=== PATIENT | male | born 1975 | race Caucasian/White ===

== ENCOUNTER 2022-12-01 20:00 | Observation (INO) ==
--- NOTE | 2022-12-01 20:09 | Emergency Department Note ---
History of Present Illness General Chief complaint: Illness Stated complaint: DIARREAH,ABDOMINAL PAIN,HEADACHE,NAUSEA DIZZY Time Seen by Provider: 12/01/22 20:07 History of Present Illness Maximum Pain Intensity: 4 This 47-year-old male patient presents to the emergency department with his supportive ex- for evaluation of diarrhea, abdominal pain, nausea, and dizziness. He has had diarrhea for the past 3 days. He went to [facility] and they told him they thought he had the flu, but did not do any testing other than a urinalysis which was normal per patient. However, about 2 hours ago his stools started coming out "black like motor oil." He is also having generalized and upper abdominal pain along with nausea. No vomiting. No fevers, but feels warm. Denies chest pain or SOB. Denies any urinary symptoms. He is not on any blood thinners. He has been taking ibuprofen 800 mg every 8 hrs over the past 3 days since getting sick. No ibuprofen since 6:30 am today. Does not usually take a lot of NSAIDs. Has not been taking any Pepto-Bismol. He rates his discomfort as 4/10. He has had a lot of abdominal issues since he was in [place] in 2002 including GERD, IBS-D, etc. He follows a FODMAP diet and takes omeprazole 40 mg QD. He had an EGD and Colonoscopy by [facility] and was found an adenomatous polyp in his colon that was removed and reflux changes per patient. No family history of colon cancer or colon polyps. Denies recent antibiotic use, recent travel, drinking from outside water sources/well water, and denies known ill contacts. Home Medications Medication Instructions Recorded Confirmed Type ibuprofen 200 mg tablet 800 mg PO BID PRN Pain 12/01/22 12/01/22 History lorazepam 1 mg tablet (Ativan) 0.5 mg PO DAILY PRN .Anx from 12/01/22 12/01/22 History flying losartan 25 mg tablet 25 mg PO QPM 12/01/22 12/01/22 History omeprazole 40 mg capsule,delayed 40 mg PO DAILY 12/01/22 12/01/22 History release Allergies Allergy/AdvReac Type Severity Reaction Status Date / Time No Known Drug Allergies Allergy nkda Verified 12/01/22 21:31 Past Med/Surg History Medical History Anxiety Hypertension Nephrolithiasis Tobacco abuse Surgical History S/P cholecystectomy Family History Other No significant family history Social History Smoking Status: Never smoker Hx Alcohol Use: Yes Alcohol type: beer Hx Substance Use: No Preferred Language: Hungarian Communication Ability: Effective Sped Teacher Required: No Beliefs That Will Affect Care: None marital status: Current Living Situation: Family current occupational status: employed Other Information That Helps Us Care for You: No Feels Safe at Home: Yes Safety Concerns: Feels Safe At This Time Assistive Devices: None Review of Systems See HPI for pertinent positives & negatives. Physical Exam Vital Signs Vital Signs - 24 hr 12/01/22 20:02 12/01/22 20:43 12/01/22 21:02 Temperature 37.3 C Temperature Source Temporal Artery Scan Pulse Rate 108 H 85 Pulse Rate [Apical] Pulse Rhythm Regular Pulse Strength Normal Respiratory Rate 18 Respiratory Effort / Characteristics Non-Labored Spontaneous Respiratory Depth Normal Respiratory Pattern Regular Blood Pressure 167/99 H Blood Pressure [Left Arm] Blood Pressure Mean 121 Blood Pressure Mean [Left Arm] Blood Pressure Position Sitting Blood Pressure Position [Left Arm] Pulse Oximetry 98 99 Oxygen Delivery Method Room Air Room Air Sepsis Recent Fever Within 48 Hours No Sepsis New/Unexplained Change in Mental Status N/A Sepsis Action Taken by Nursing No Action Required 12/01/22 21:56 12/01/22 23:24 Temperature 37.1 C Temperature Source Oral Pulse Rate Pulse Rate [Apical] 86 82 Pulse Rhythm Pulse Strength Respiratory Rate 16 18 Respiratory Effort / Characteristics Non-Labored Spontaneous Non-Labored Spontaneous Respiratory Depth Normal Normal Respiratory Pattern Regular Regular Blood Pressure Blood Pressure [Left Arm] 134/79 143/87 H Blood Pressure Mean Blood Pressure Mean [Left Arm] 97 105 Blood Pressure Position Blood Pressure Position [Left Arm] Semi-fowlers Pulse Oximetry 98 98 Oxygen Delivery Method Room Air Room Air Sepsis Recent Fever Within 48 Hours Sepsis New/Unexplained Change in Mental Status Sepsis Action Taken by Nursing VITALS: Vitals are noted on the nurse's note and reviewed by myself. GENERAL: Non toxic, no acute distress, non-diaphoretic. SKIN: Capillary refill <2 sec. EYES: PERRLA. EOMI. Conjunctivae without injection, sclerae without icterus. NOSE: Patent without discharge. MOUTH: Mucous membranes moist. Uvula midline. Airway patent. NECK: Supple without nuchal rigidity. HEART: Regular rate and rhythm without murmurs gallops or rubs. LUNGS: Clear to auscultation bilaterally without wheezes, rales or rhonchi. No retractions or accessory muscle use. ABDOMEN: Positive bowel sounds x 4. Normal tympanic percussion. Soft, diffusely tender to palpation with maximal tenderness in the epigastric and left lower quadrant. No masses or organomegaly. Maloney sign negative. No guarding or rebound tenderness. No focal RLQ tenderness. Course Administered Medications Discontinued Medications Sodium Chloride (Nss 1000ml) 1,000 mls @ 999 mls/hr IV .Q1H1M STA Stop: 12/01/22 21:23 Last Infusion: 12/01/22 21:40 Dose: 0 mls/hr Documented By: Admin: 12/01/22 20:39 Dose: 999 mls/hr Documented By: MERCEDES Pantoprazole Sodium 40 mg/ (Syringe) 10 mls @ 5 mls/min IV NOW ONE Stop: 12/01/22 20:26 Last Admin: 12/01/22 21:55 Dose: 5 mls/min Documented By: MERCEDES Famotidine (Pepcid 20mg Iv Push) 20 mg in 5 mls @ 2.5 mls/min IV NOW STA Stop: 12/01/22 20:26 Last Admin: 12/01/22 20:39 Dose: 2.5 mls/min Documented By: MERCEDES Sodium Chloride (Nss) 500 mls @ 999 mls/hr IV .Q31M ONE Stop: 12/01/22 23:45 Last Infusion: 12/02/22 00:02 Dose: 0 mls/hr Documented By: Admin: 12/01/22 23:30 Dose: 999 mls/hr Documented By: MERCEDES Azithromycin 500 mg/ Dextrose 255 mls @ 127.5 mls/hr IV ONE STA Stop: 12/02/22 02:53 Last Admin: 12/02/22 01:19 Dose: 127.5 mls/hr Documented By: MERCEDES Ioversol (Optiray 320 100ml) 92 ml IV ONCE ONE Stop: 12/01/22 21:44 Last Admin: 12/01/22 21:44 Dose: 92 ml Documented By: FRANCK Medical Decision Making Differential Diagnosis Differential diagnosis includes hepatitis, pancreatitis, cholecystitis, cholelithiasis, appendicitis, kidney stone, pyelonephritis, UTI, upper GI bleed, gastritis, gastroenteritis, mesenteric adenitis, obstruction, constipation, hernia, abdominal abscess, perforation, diverticulitis, IBD, ischemic colitis, abdominal aortic aneurysm, testicular torsion, prostatitis, or others. Laboratory Data Attestation: I reviewed the patient's lab results. 12/01/22 20:43 12/01/22 20:43 Lab Results 12/01/22 12/01/22 12/01/22 Range/Units 20:43 20:43 20:43 WBC 10.32 (4.8-10.8) K/ul RBC 4.99 (4.70-6.10) M/uL Hgb 15.0 (14.0-18.0) g/dl Hct 43.6 (42.0-52.0) % MCV 87.4 (80.0-100.0) fL MCH 30.1 (25.0-34.0) pg MCHC 34.4 (32.0-36.0) g/dL RDW Std Deviation 39.6 (36.4-46.3) fL RDW Coeff of Chet 12.4 (11.5-14.5) % Plt Count 321 (130-400) K/uL MPV 10.1 (9.4-12.4) fL Immature Gran % (Auto) 0.3 % Neut % (Auto) 64.6 % Lymph % (Auto) 20.8 % [place] % (Auto) 12.1 % Eos % (Auto) 1.3 % Baso % (Auto) 0.9 % Neut # (Auto) 6.67 H (1.40-6.50) K/uL Lymph # (Auto) 2.15 (1.2-3.4) K/uL [place] # (Auto) 1.25 H (0.11-0.59) K/uL Eos # (Auto) 0.13 (0-0.50) K/uL Baso # (Auto) 0.09 (0-0.2) K/uL Immature Gran # (Auto) 0.03 (0.01-0.20) K/uL ESR (0-15) mm/hr PT 11.4 (9.0-12.0) Seconds INR 1.0 (0.9-1.1) APTT 28.1 (21.0-31.0) Seconds PTT Ratio 1.0 Sodium 136 (136-145) mmol/L Potassium 3.6 (3.5-5.1) mmol/L Chloride 105 (98-107) mmol/L Carbon Dioxide 23 (21-32) mmol/L Anion Gap 8 (3-11) BUN 7 (6-23) mg/dl Creatinine 0.71 (0.6-1.4) mg/dl Est Cr Clr Drug Dosing 151.3 ml/min Est GFR ( Amer) 130.4 ml/min Est GFR (Non-Af Amer) 112.5 ml/min BUN/Creatinine Ratio 9.9 L (10-20) Glucose 99 (70-99(Fasting)) mg/dl Lactate (0.4-2.0) mmol/L Calcium 8.8 (8.6-10.3) mg/dl Total Bilirubin 0.6 (0.2-1.0) mg/dl AST 15 (13-39) U/L ALT 26 (7-52) U/L Alkaline Phosphatase 80 (34-104) U/L C-Reactive Protein 11.94 H (0-0.5) mg/dl Total Protein 7.7 (6.0-8.3) gm/dl Albumin 4.0 (3.4-5.0) gm/dl Globulin 3.7 (2.5-4.0) gm/dl Albumin/Globulin Ratio 1.1 (0.9-2) Lipase 13 (11-82) U/L POC Stool Occult Blood (Negative) Stl C. cayetanensis PCR (NotDetected) Stool Rotavirus A PCR (NotDetected) Stl Adenov F 40/41 PCR (NotDetected) Stool Astrovirus (PCR) (NotDetected) Stool Campylobacter PCR (NotDetected) Stl C. diff Tox B Gene (Neg) Stool Cryptosporidium PCR (NotDetected) Stl E.coli Shiga Tox PCR (NotDetected) Stl Enterotoxigenic E PCR (NotDetected) Stool EPEC (PCR) (NotDetected) Stool EAEC (PCR) (NotDetected) Stl E. histolytica PCR (NotDetected) Stool Giardia Lamblia PCR (NotDetected) Stool Salmonella PCR (NotDetected) Stool Sapovirus (PCR) (NotDetected) Stl P. shigelloides PCR (NotDetected) Stl Shigella/EIEC PCR (NotDetected) St Y.enterocolitica PCR (NotDetected) Stool Vibrio (PCR) (NotDetected) Stl Vibrio cholerae PCR (NotDetected) Stl Norovirus GI/GII PCR (NotDetected) SARS-CoV-2, RNA, NAAT (NEGATIVE) Blood Type Antibody Screen 12/01/22 12/01/22 12/01/22 Range/Units 20:43 20:43 20:53 WBC (4.8-10.8) K/ul RBC (4.70-6.10) M/uL Hgb (14.0-18.0) g/dl Hct (42.0-52.0) % MCV (80.0-100.0) fL MCH (25.0-34.0) pg MCHC (32.0-36.0) g/dL RDW Std Deviation (36.4-46.3) fL RDW Coeff of Chet (11.5-14.5) % Plt Count (130-400) K/uL MPV (9.4-12.4) fL Immature Gran % (Auto) % Neut % (Auto) % Lymph % (Auto) % [place] % (Auto) % Eos % (Auto) % Baso % (Auto) % Neut # (Auto) (1.40-6.50) K/uL Lymph # (Auto) (1.2-3.4) K/uL [place] # (Auto) (0.11-0.59) K/uL Eos # (Auto) (0-0.50) K/uL Baso # (Auto) (0-0.2) K/uL Immature Gran # (Auto) (0.01-0.20) K/uL ESR 52 H (0-15) mm/hr PT (9.0-12.0) Seconds INR (0.9-1.1) APTT (21.0-31.0) Seconds PTT Ratio Sodium (136-145) mmol/L Potassium (3.5-5.1) mmol/L Chloride (98-107) mmol/L Carbon Dioxide (21-32) mmol/L Anion Gap (3-11) BUN (6-23) mg/dl Creatinine (0.6-1.4) mg/dl Est Cr Clr Drug Dosing ml/min Est GFR ( Amer) ml/min Est GFR (Non-Af Amer) ml/min BUN/Creatinine Ratio (10-20) Glucose (70-99(Fasting)) mg/dl Lactate (0.4-2.0) mmol/L Calcium (8.6-10.3) mg/dl Total Bilirubin (0.2-1.0) mg/dl AST (13-39) U/L ALT (7-52) U/L Alkaline Phosphatase (34-104) U/L C-Reactive Protein (0-0.5) mg/dl Total Protein (6.0-8.3) gm/dl Albumin (3.4-5.0) gm/dl Globulin (2.5-4.0) gm/dl Albumin/Globulin Ratio (0.9-2) Lipase (11-82) U/L POC Stool Occult Blood Positive A (Negative) Stl C. cayetanensis PCR (NotDetected) Stool Rotavirus A PCR (NotDetected) Stl Adenov F 40/41 PCR (NotDetected) Stool Astrovirus (PCR) (NotDetected) Stool Campylobacter PCR (NotDetected) Stl C. diff Tox B Gene Negative Cdiff Gene (Neg) Stool Cryptosporidium PCR (NotDetected) Stl E.coli Shiga Tox PCR (NotDetected) Stl Enterotoxigenic E PCR (NotDetected) Stool EPEC (PCR) (NotDetected) Stool EAEC (PCR) (NotDetected) Stl E. histolytica PCR (NotDetected) Stool Giardia Lamblia PCR (NotDetected) Stool Salmonella PCR (NotDetected) Stool Sapovirus (PCR) (NotDetected) Stl P. shigelloides PCR (NotDetected) Stl Shigella/EIEC PCR (NotDetected) St Y.enterocolitica PCR (NotDetected) Stool Vibrio (PCR) (NotDetected) Stl Vibrio cholerae PCR (NotDetected) Stl Norovirus GI/GII PCR (NotDetected) SARS-CoV-2, RNA, NAAT (NEGATIVE) Blood Type Antibody Screen 12/01/22 12/01/22 12/01/22 Range/Units 21:06 21:06 22:13 WBC (4.8-10.8) K/ul RBC (4.70-6.10) M/uL Hgb (14.0-18.0) g/dl Hct (42.0-52.0) % MCV (80.0-100.0) fL MCH (25.0-34.0) pg MCHC (32.0-36.0) g/dL RDW Std Deviation (36.4-46.3) fL RDW Coeff of Chet (11.5-14.5) % Plt Count (130-400) K/uL MPV (9.4-12.4) fL Immature Gran % (Auto) % Neut % (Auto) % Lymph % (Auto) % [place] % (Auto) % Eos % (Auto) % Baso % (Auto) % Neut # (Auto) (1.40-6.50) K/uL Lymph # (Auto) (1.2-3.4) K/uL [place] # (Auto) (0.11-0.59) K/uL Eos # (Auto) (0-0.50) K/uL Baso # (Auto) (0-0.2) K/uL Immature Gran # (Auto) (0.01-0.20) K/uL ESR (0-15) mm/hr PT (9.0-12.0) Seconds INR (0.9-1.1) APTT (21.0-31.0) Seconds PTT Ratio Sodium (136-145) mmol/L Potassium (3.5-5.1) mmol/L Chloride (98-107) mmol/L Carbon Dioxide (21-32) mmol/L Anion Gap (3-11) BUN (6-23) mg/dl Creatinine (0.6-1.4) mg/dl Est Cr Clr Drug Dosing ml/min Est GFR ( Amer) ml/min Est GFR (Non-Af Amer) ml/min BUN/Creatinine Ratio (10-20) Glucose (70-99(Fasting)) mg/dl Lactate 1.2 (0.4-2.0) mmol/L Calcium (8.6-10.3) mg/dl Total Bilirubin (0.2-1.0) mg/dl AST (13-39) U/L ALT (7-52) U/L Alkaline Phosphatase (34-104) U/L C-Reactive Protein (0-0.5) mg/dl Total Protein (6.0-8.3) gm/dl Albumin (3.4-5.0) gm/dl Globulin (2.5-4.0) gm/dl Albumin/Globulin Ratio (0.9-2) Lipase (11-82) U/L POC Stool Occult Blood (Negative) Stl C. cayetanensis PCR Not Detected (NotDetected) Stool Rotavirus A PCR Not Detected (NotDetected) Stl Adenov F 40/41 PCR Not Detected (NotDetected) Stool Astrovirus (PCR) Not Detected (NotDetected) Stool Campylobacter PCR DETECTED A* (NotDetected) Stl C. diff Tox B Gene (Neg) Stool Cryptosporidium PCR Not Detected (NotDetected) Stl E.coli Shiga Tox PCR Not Detected (NotDetected) Stl Enterotoxigenic E PCR Not Detected (NotDetected) Stool EPEC (PCR) Not Detected (NotDetected) Stool EAEC (PCR) Not Detected (NotDetected) Stl E. histolytica PCR Not Detected (NotDetected) Stool Giardia Lamblia PCR Not Detected (NotDetected) Stool Salmonella PCR Not Detected (NotDetected) Stool Sapovirus (PCR) Not Detected (NotDetected) Stl P. shigelloides PCR Not Detected (NotDetected) Stl Shigella/EIEC PCR Not Detected (NotDetected) St Y.enterocolitica PCR Not Detected (NotDetected) Stool Vibrio (PCR) Not Detected (NotDetected) Stl Vibrio cholerae PCR Not Detected (NotDetected) Stl Norovirus GI/GII PCR Not Detected (NotDetected) SARS-CoV-2, RNA, NAAT (NEGATIVE) Blood Type A Positive Antibody Screen NEGATIVE 12/01/22 Range/Units 23:22 WBC (4.8-10.8) K/ul RBC (4.70-6.10) M/uL Hgb (14.0-18.0) g/dl Hct (42.0-52.0) % MCV (80.0-100.0) fL MCH (25.0-34.0) pg MCHC (32.0-36.0) g/dL RDW Std Deviation (36.4-46.3) fL RDW Coeff of Chet (11.5-14.5) % Plt Count (130-400) K/uL MPV (9.4-12.4) fL Immature Gran % (Auto) % Neut % (Auto) % Lymph % (Auto) % [place] % (Auto) % Eos % (Auto) % Baso % (Auto) % Neut # (Auto) (1.40-6.50) K/uL Lymph # (Auto) (1.2-3.4) K/uL [place] # (Auto) (0.11-0.59) K/uL Eos # (Auto) (0-0.50) K/uL Baso # (Auto) (0-0.2) K/uL Immature Gran # (Auto) (0.01-0.20) K/uL ESR (0-15) mm/hr PT (9.0-12.0) Seconds INR (0.9-1.1) APTT (21.0-31.0) Seconds PTT Ratio Sodium (136-145) mmol/L Potassium (3.5-5.1) mmol/L Chloride (98-107) mmol/L Carbon Dioxide (21-32) mmol/L Anion Gap (3-11) BUN (6-23) mg/dl Creatinine (0.6-1.4) mg/dl Est Cr Clr Drug Dosing ml/min Est GFR ( Amer) ml/min Est GFR (Non-Af Amer) ml/min BUN/Creatinine Ratio (10-20) Glucose (70-99(Fasting)) mg/dl Lactate (0.4-2.0) mmol/L Calcium (8.6-10.3) mg/dl Total Bilirubin (0.2-1.0) mg/dl AST (13-39) U/L ALT (7-52) U/L Alkaline Phosphatase (34-104) U/L C-Reactive Protein (0-0.5) mg/dl Total Protein (6.0-8.3) gm/dl Albumin (3.4-5.0) gm/dl Globulin (2.5-4.0) gm/dl Albumin/Globulin Ratio (0.9-2) Lipase (11-82) U/L POC Stool Occult Blood (Negative) Stl C. cayetanensis PCR (NotDetected) Stool Rotavirus A PCR (NotDetected) Stl Adenov F 40/41 PCR (NotDetected) Stool Astrovirus (PCR) (NotDetected) Stool Campylobacter PCR (NotDetected) Stl C. diff Tox B Gene (Neg) Stool Cryptosporidium PCR (NotDetected) Stl E.coli Shiga Tox PCR (NotDetected) Stl Enterotoxigenic E PCR (NotDetected) Stool EPEC (PCR) (NotDetected) Stool EAEC (PCR) (NotDetected) Stl E. histolytica PCR (NotDetected) Stool Giardia Lamblia PCR (NotDetected) Stool Salmonella PCR (NotDetected) Stool Sapovirus (PCR) (NotDetected) Stl P. shigelloides PCR (NotDetected) Stl Shigella/EIEC PCR (NotDetected) St Y.enterocolitica PCR (NotDetected) Stool Vibrio (PCR) (NotDetected) Stl Vibrio cholerae PCR (NotDetected) Stl Norovirus GI/GII PCR (NotDetected) SARS-CoV-2, RNA, NAAT NEGATIVE (NEGATIVE) Blood Type Antibody Screen Imaging Data Attestation: I personally reviewed and interpreted this imaging study as follows: My Impression: Chest x-ray was interpreted by myself as negative for acute cardiopulmonary etiology. Radiology report still pending. Radiologist's Impression: Abdomen/Pelvis CT 12/01/22 20:23 Exam(s): CT ABDOMEN + PELVIS With Contrast IV Amt: 92 ml optiray 320 EXAM: CT Abdomen and Pelvis With Intravenous Contrast CLINICAL HISTORY: Reason for exam: abdominal pain, diarrhea, melena. TECHNIQUE: Axial computed tomography images of the abdomen and pelvis with intravenous contrast. CTDI is 27.93 mGy and DLP is 1551.67 mGy-cm. Automated exposure control was utilized for the study. A dose lowering technique was utilized adhering to the principles of ALARA. CONTRAST: Patient received 92 ml optiray 320 of IV contrast COMPARISON: No relevant prior studies available. FINDINGS: Lung bases: Unremarkable. No mass. No consolidation. ABDOMEN: Liver: Unremarkable. No mass. Gallbladder and bile ducts: Cholecystectomy. No ductal dilation. Pancreas: Unremarkable. No mass. No ductal dilation. Spleen: Unremarkable. No splenomegaly. Adrenals: Unremarkable. No mass. Kidneys and ureters: Nonobstructing 2 mm LEFT lower pole renal calculus. Stomach and bowel: Diverticulosis, without acute diverticulitis. No small bowel obstruction. No free intraperitoneal air. Mild wall thickening of the descending colon, likely from under distention. Mild colitis not excluded. PELVIS: Appendix: No findings to suggest acute appendicitis. Bladder: Unremarkable. No mass. Reproductive: Unremarkable as visualized. ABDOMEN and PELVIS: Intraperitoneal space: Unremarkable. No free air. No significant fluid collection. Bones/joints: Degenerative changes of the spine. No acute fracture. No dislocation. Soft tissues: Unremarkable. Vasculature: Atherosclerotic changes of the aorta. No abdominal aortic aneurysm. Lymph nodes: Unremarkable. No enlarged lymph nodes. IMPRESSION: 1. Mild wall thickening of the descending colon, likely from under distention. Mild colitis not excluded. 2. Nonobstructing 2 mm LEFT lower pole renal calculus. 3. Diverticulosis, without acute diverticulitis. No small bowel obstruction. No free intraperitoneal air. 4. Cholecystectomy. Electronically signed by: William Ruffin MD 12/01/22 23:33 PM [facility] Narrative I examined the patient. An IV lock was placed and labs were drawn. He was given a total of 1.5 L of normal saline solution bolus. He was given Protonix 40 mg IV and Pepcid 20 mg IV. He declined any medication for pain or nausea while in the emergency department. CBC without leukocytosis or anemia. Hemoglobin was 15. Platelet count normal. Coags were normal. CMP essentially normal. Lipase normal. Sed rate elevated at 52 and CRP elevated 11.94. Lactate normal at 1.2. Stool is black and Hemoccult positive. Urinalysis without evidence for UTI. COVID negative. C. difficile negative. Stool bio fire was positive for Campylobacter, but otherwise negative. Chest x-ray was interpreted by myself as negative for acute cardiopulmonary etiology. Radiology report still pending. CT scan of the abdomen pelvis with IV contrast was reviewed by myself and read by radiology as above and showed mild wall thickening of the descending colon which is likely from under distention, but a mild colitis is not excluded. There is a nonobstructing 2 mm left lower pole renal calculus. Diverticulosis without evidence for diverticulitis. No evidence for bowel obstruction or free intraperitoneal air. He is status postcholecystectomy. The patient has a Campylobacter infection which I suspect was causing the patient's diarrhea and abdominal pain. I suspect that the patient's melena that is heme + is secondary to a GI bleed from the combination of his increased NSAID use recently along with the Campylobacter infection. The patient has had at least 4 episodes of black tarry stools while in the emergency department. I feel the patient requires admission for further management of his GI bleed and Campylobacter infection. Will defer treatment of the Campylobacter to the inpatient team. I spoke to the on-call hospitalist who agreed to admit the patient for further evaluation and treatment. Please refer to their dictation for further details. The patient was admitted in stable condition. Impression & Plan Acute GI bleeding, Campylobacter diarrhea Discharge Plan Visit Data Chief Complaint: Illness Stated Complaint: DIARREAH,ABDOMINAL PAIN,HEADACHE,NAUSEA DIZZY ED Provider: Lamont Leal ED Midlevel Provider: Marley Sheldon Discharge Problem: Acute GI bleeding, Campylobacter diarrhea Patient Disposition: Admitted As Inpatient Condition: Good Discharge Instructions Interventions: ED Discharge Assessment Last Done: 12/02/22 01:43
[2022-12-01] MEDS ORDERED: SODIUM CHLORIDE 0.9% 1000ML 1,000 ML IV STA (20:23)
[2022-12-01] MEDS ORDERED: FAMOTIDINE 20MG IV PUSH 20 MG/5 ML SYR IV STA (20:25)
[2022-12-01] MEDS ORDERED: PANTOprazole 40 MG in SYRINGE 0 ML IV ONE (20:25)
[2022-12-01 21:18] LABS: Albumin Globulin Ratio 1.1 (0.9-2); Bilirubin,Total 0.6 mg/dl (0.2-1.0); Creatinine Clr Calc Pharmacy 151.3 ml/min; Potassium 3.6 mmol/L (3.5-5.1)
[2022-12-01 21:26] LABS: BUN Creatinine Ratio 9.9 (10-20); C Reactive Protein 11.94 mg/dl (0-0.5); Calcium 8.8 mg/dl (8.6-10.3); Est GFR (African American) 130.4 ml/min; Est GFR (Non-African American) 112.5 ml/min; Globulin 3.7 gm/dl (2.5-4.0); Total Protein 7.7 gm/dl (6.0-8.3)
[2022-12-01 21:29] LABS: Basophils # (auto) 0.09 K/uL (0-0.2); Basophils % (auto) 0.9 %; Eosinophils # (auto) 0.13 K/uL (0-0.50); Eosinophils % (auto) 1.3 %; Hematocrit (blood only) 43.6 % (42.0-52.0); Immature Granulocytes # (auto) 0.03 K/uL (0.01-0.20); Immature Granulocytes % (auto) 0.3 %; Lymphocytes # (auto) 2.15 K/uL (1.2-3.4); Lymphocytes % (auto) 20.8 %; Mean Corpuscular Hemoglobin 30.1 pg (25.0-34.0); Mean Corpuscular Hgb Conc 34.4 g/dL (32.0-36.0); Mean Corpuscular Volume 87.4 fL (80.0-100.0); Mean Platelet Volume 10.1 fL (9.4-12.4); Monocytes # (auto) 1.25 K/uL (0.11-0.59); Monocytes % (auto) 12.1 %; Neutrophils # (auto) 6.67 K/uL (1.40-6.50); Neutrophils % (auto) 64.6 %; Platelet Count 321 K/uL (130-400); RDW Coefficient of Variation 12.4 % (11.5-14.5); RDW Standard Deviation 39.6 fL (36.4-46.3); Red Blood Count 4.99 M/uL (4.70-6.10); White Blood Count 10.32 K/ul (4.8-10.8)
[2022-12-01] MEDS ORDERED: OPTIRAY 320 100ml IV ONE (21:43)
[2022-12-01 21:47] LABS: Partial Thromboplastin Time 28.1 Seconds (21.0-31.0); Prothrombin Time 11.4 Seconds (9.0-12.0)
[2022-12-01] MEDS ORDERED: SODIUM CHLORIDE 0.9% 500 ML IV ONE (23:15)
--- NOTE | 2022-12-01 23:34 | CT Scan Report ---
Exam(s): CT ABDOMEN + PELVIS With Contrast IV Amt: 92 ml optiray 320 EXAM: CT Abdomen and Pelvis With Intravenous Contrast CLINICAL HISTORY: Reason for exam: abdominal pain, diarrhea, melena. TECHNIQUE: Axial computed tomography images of the abdomen and pelvis with intravenous contrast. CTDI is 27.93 mGy and DLP is 1551.67 mGy-cm. Automated exposure control was utilized for the study. A dose lowering technique was utilized adhering to the principles of ALARA. CONTRAST: Patient received 92 ml optiray 320 of IV contrast COMPARISON: No relevant prior studies available. FINDINGS: Lung bases: Unremarkable. No mass. No consolidation. ABDOMEN: Liver: Unremarkable. No mass. Gallbladder and bile ducts: Cholecystectomy. No ductal dilation. Pancreas: Unremarkable. No mass. No ductal dilation. Spleen: Unremarkable. No splenomegaly. Adrenals: Unremarkable. No mass. Kidneys and ureters: Nonobstructing 2 mm LEFT lower pole renal calculus. Stomach and bowel: Diverticulosis, without acute diverticulitis. No small bowel obstruction. No free intraperitoneal air. Mild wall thickening of the descending colon, likely from under distention. Mild colitis not excluded. PELVIS: Appendix: No findings to suggest acute appendicitis. Bladder: Unremarkable. No mass. Reproductive: Unremarkable as visualized. ABDOMEN and PELVIS: Intraperitoneal space: Unremarkable. No free air. No significant fluid collection. Bones/joints: Degenerative changes of the spine. No acute fracture. No dislocation. Soft tissues: Unremarkable. Vasculature: Atherosclerotic changes of the aorta. No abdominal aortic aneurysm. Lymph nodes: Unremarkable. No enlarged lymph nodes. IMPRESSION: 1. Mild wall thickening of the descending colon, likely from under distention. Mild colitis not excluded. 2. Nonobstructing 2 mm LEFT lower pole renal calculus. 3. Diverticulosis, without acute diverticulitis. No small bowel obstruction. No free intraperitoneal air. 4. Cholecystectomy. Electronically signed by: William Ruffin MD 12/01/22 23:33 PM
[2022-12-01 23:42] LABS: Adenovirus F 40/41 PCR Not Detected (NotDetected); Astrovirus PCR Not Detected (NotDetected); Cryptosporidium PCR Not Detected (NotDetected); Cyclospora cayetanensis PCR Not Detected (NotDetected); Entamoeba histolytica PCR Not Detected (NotDetected); Enteroaggregative E.coli(EAEC) Not Detected (NotDetected); Enteropathogenic E.coli (EPEC) Not Detected (NotDetected); Enterotoxigenic E.coli (ETEC) Not Detected (NotDetected); Giardia lamblia PCR Not Detected (NotDetected); Norovirus GI/GII PCR Not Detected (NotDetected); Plesiomonas shigelloides PCR Not Detected (NotDetected); Rotavirus A PCR Not Detected (NotDetected); Salmonella PCR Not Detected (NotDetected); Sapovirus PCR Not Detected (NotDetected); Shiga-like Toxin E.coli (STEC) Not Detected (NotDetected); Shigella/Enteroinvasive E.coli Not Detected (NotDetected); Vibrio cholerae PCR Not Detected (NotDetected); Vibrio species PCR Not Detected (NotDetected); Yersinia enterocolitica PCR Not Detected (NotDetected)
[2022-12-01 23:58] LABS: Campylobacter PCR DETECTED (NotDetected)
--- NOTE | 2022-12-02 00:44 | History & Physical Report ---
Date of Service December 02, 2022 Assessment & Plan (1) Campylobacter diarrhea: Plan: 47yo Male with PMH HTN GERD here for bloody diarrhea. Diarrhea -CT A/P: Mild wall thickening of the descending colon, likely from under distention. Mild colitis not excluded. Nonobstructing 2 mm LEFT lower pole renal calculus.. Diverticulosis, without acute diverticulitis. No small bowel obstruction. No free intraperitoneal air. Cholecystectomy. -CXR per my read unremarkable -WBC normal, CRP 11.94 -stool occult blood positive, campylobacter positive -in ED received 1.5L NSS, famotidine, protonix -will start patient on azithromycin 500mg daily for 3 days -advised patient to avoid chicken dishes from restaurant for now GERD -continue protonix HTN -continue losartan FENa: regular Code Status: Full DVT PPX: ambulatory Dispo: med/surg Marta Gilman D.O. PGY 3, FCM (2) Hypertension: History of Present Illness Chief Complaint: Diarrhea Primary Care Provider: Oksana Chacko 47yo Male with PMH HTN here for bloody diarrhea. States on saturday developed diarrhea headache nausea abd pain. On Saturday these symptoms progressed to black stool, so he came to the ED. He has been managing his symptoms with ibuprofen 800mg q8hrs. He has noted some fatigue, occasional joint pain in hands knees hips. No fever SOB weakness. No history heart lung conditions. Patient states he frequently eats take out, past saturday went to [employer] for the first time got a chicken cheese steak, believes that's why he is sick. Allergies Allergy/AdvReac Type Severity Reaction Status Date / Time No Known Drug Allergies Allergy nkda Verified 12/01/22 21:31 Home Medications Medication Instructions Recorded Confirmed Type ibuprofen 200 mg tablet 800 mg PO BID PRN Pain 12/01/22 12/01/22 History lorazepam 1 mg tablet (Ativan) 0.5 mg PO DAILY PRN .Anx from 12/01/22 12/01/22 History flying losartan 25 mg tablet 25 mg PO QPM 12/01/22 12/01/22 History omeprazole 40 mg capsule,delayed 40 mg PO DAILY 12/01/22 12/01/22 History release Past Med/Surg History Medical History Anxiety Hypertension Nephrolithiasis Tobacco abuse Surgical History S/P cholecystectomy Family History Other No significant family history Social History Smoking Status: Never smoker Hx Alcohol Use: Yes Alcohol type: beer Hx Substance Use: No Preferred Language: [place] Communication Ability: Effective Counselling Psychologist Required: No Beliefs That Will Affect Care: None marital status: Current Living Situation: Family current occupational status: employed Other Information That Helps Us Care for You: No Feels Safe at Home: Yes Safety Concerns: Feels Safe At This Time Assistive Devices: None Physical Exam Constitutional: WD/WN, vitals as above Eyes: PERRL, conjunctivae normal, anicteric sclerae ENMT: external ear and nose normal, oropharynx normal Neck: trachea midline, no thyromegaly Respiratory: normal respiratory effort, lungs clear to auscultation Cardiovascular: Rate/Rhythm: regular rate and regular rhythm Gastrointestinal (Abdomen): Inspection/Auscultation: abdomen normal to inspection Percussion/Palpation: + abdomen tender (epigastric area) and abdomen soft Musculoskeletal: 5/5 strength in lower extremities Skin: no rashes, warm and dry Results & Data Results & Data Vital Signs (Past 12 Hours) Vital Signs Temp Pulse Pulse Resp BP BP Pulse Ox 12/01/22 23:24 82 18 143/87 H 98 12/01/22 21:56 37.1 C 86 16 134/79 98 12/01/22 21:02 85 12/01/22 20:43 99 12/01/22 20:02 37.3 C 108 H 18 167/99 H 98 O2 Del Method 12/01/22 23:24 Room Air 12/01/22 21:56 Room Air 12/01/22 21:02 12/01/22 20:43 Room Air 12/01/22 20:02 Room Air Supervising Physician Co-Signing Physician Notes Patient seen and examined, chart reviewed, case discussed with Dr. Gilman and I agree with the assessment and plan as above. In brief, patient is a 47yo male with headache, nausea, abdominal pain and bloody diarrhea. Symptoms began after eating take out Stool POSITIVE for campylobacter. On exam he is afebrile, HD stable, non-toxic in appearance Skin - no rash HEENT - mildly dry mucus membranes otherwise, neck supple, PERRL, no icterus Heart - +S1/S2, regular, no m/r/g Lungs - CTA Abd - mild mid abdominal tenderness to palpation, no peritonitis or distention Ext - warm, well perfused, 2+ pulses Labs and images reviewed Assessment/Plan Colitis secondary to campylobacter infection possibly from recent take out food -Azithromycin 500mg po daily x 3 days -Remainder as above Resident Activity Tracking Resident Involvement: Resident Care Provided Care Provided: Adult Hospital Medicine
[2022-12-02] MEDS ORDERED: AZITHROMYCIN 500 MG in DEXTROSE 5% 250 ML IV STA (00:54)
[2022-12-02 01:33] LABS: Appearance Urine Clear (Clear); Bilirubin Urine Negative (Negative); Blood Urine Negative (Negative); Color Urine Yellow; Glucose Urine UA Negative (Negative); Ketones Urine Negative (Negative); Leukocyte Esterase Urine Negative (Negative); Nitrite Urine Negative (Negative); Protein Urine Negative (Negative); Specific Gravity Urine > 1.045 (1.000-1.030); Urobilinogen Urine Negative (Negative); pH Urine 5.5 (4.5-7.5)
[2022-12-02] MEDS ORDERED: ACETAMINOPHEN 325 MG TAB PO PRN (02:20)
[2022-12-02] MEDS ORDERED: POLYETHYLENE (MIRALAX) 17 GM PACK PO PRN (02:20)
--- NOTE | 2022-12-02 04:19 | Billing Data ---
Date of Service December 02, 2022 Coding Level of Care Code 79156 INT INP/OBS CARE
--- NOTE | 2022-12-02 07:11 | XRay Report ---
SINGLE VIEW CHEST CLINICAL HISTORY: Epigastric abdominal pain FINDINGS: 2 AP, portable, upright chest radiographs are compared to study dated 05/25/2019. The cardi omediastinal silhouette is unremarkable. There is mild elevation of the right hemidiaphragm. The lung s and pleural spaces are clear. No pneumothorax is seen. The bony thorax is grossly intact. IMPRESSION: No active disease in the chest. ACT 112: Negative or not required by law. Electronically signed by: Aakash Lane M.D. 12/02/2022 7:09 AM
[2022-12-02] MEDS ORDERED: PANTOprazole 40 MG TAB PO SCH (09:00)
[2022-12-02] MEDS ORDERED: LOPERAMIDE HCL 2 MG CAP PO PRN (09:01)
--- NOTE | 2022-12-02 14:36 | Discharge Summary ---
Date of Service December 02, 2022 Admission HPI Per Admitting Provider 47yo Male with PMH HTN here for bloody diarrhea. States on saturday developed diarrhea headache nausea abd pain. On Saturday these symptoms progressed to black stool, so he came to the ED. He has been managing his symptoms with ibuprofen 800mg q8hrs. He has noted some fatigue, occasional joint pain in hands knees hips. No fever SOB weakness. No history heart lung conditions. Patient states he frequently eats take out, past saturday went to [employer] for the first time got a chicken cheese steak, believes that's why he is sick. Principal Diagnosis Gastroenteritis Discharge Exam Constitutional WD/WN, vitals as above Eyes + anicteric sclerae Neck normal visual inspection Respiratory normal respiratory effort, lungs clear to auscultation Cardiovascular RRR, no murmur, no edema Gastrointestinal (Abdomen) Inspection/Auscultation: abdomen normal to inspection Percussion/Palpation: + abdomen tender (mild, diffuse) and abdomen soft; no guarding and abdomen not rigid Musculoskeletal Head/Neck/Chest: normocephalic and head atraumatic Skin no rashes, warm and dry normal turgor Neurologic moves all extremities Psychiatric A+Ox3, euthymic affect Discharge Data Allergies Allergy/AdvReac Type Severity Reaction Status Date / Time No Known Drug Allergies Allergy nkda Verified 12/01/22 21:31 Ordered Studies 12/01/22 20:23 CT abd pelvis IV con only Stat Hospital Course (1) Campylobacter diarrhea: 47yo Male with PMH HTN GERD here for bloody diarrhea secondary to Campylobacter species Colitis sec to Campylobacter due to recent food intake Bloody Diarrhea Patient came to the emergency department for evaluation of black bowel movements. He had stool testing done which did show active Campylobacter infection with a CT scan of the abdomen pelvis which showed mild wall thickening of the descending colon it was believed that the patient acquired this infection from a recent visit to a restaurant where he ate a chicken dish. His stool Hemoccult was also positive. due to concern for hydration status, patient was admitted to the hospital for fluid resuscitation and antibiotic initiation. He received 1.5 L of normal saline in the ED and received 1 dose of azithromycin IV. Throughout his hospitalization, his bowel movements lessened and was having adequate urine output with just oral hydration. For this reason, we felt it was safe for the patient to be discharged with management at home. He was discharged with a prescription for 2 more days of azithromycin and it was recommended the patient continue to take omeprazole for GI bleeding related to gastroenteritis. It was also encouraged that the patient take Imodium after every loose bowel movement with a maximum dose of 16 mg in a 24-hour period. FENa: regular Code Status: Full DVT PPX: ambulatory Dispo: D/C home, self care (2) Hypertension: Total Time Total Time Spent Total Time Spent (In Minutes): 30 Discharge Plan Discharge Items Patient Disposition: Home - Self-Care Reason For Visit: DIARRHEA Discharge Diagnosis: Gastroenteritis secondary to bacterial pathogen Condition on Discharge: Good Activity: Per Instructions section Non-emergency contact: Primary Care Provider Call non-emergency contact if: you have any medication questions Follow-up/Referrals: Oksana Chacko [Primary Care Provider] - Diet: Regular Addtl Attending Provider Instructions: You were admitted to the hospital for the concern of bloody diarrhea secondary to a bacteria called Campylobacter. For this reason you were admitted for observation and initiation of antibiotic treatment. You received 1 dose of azithromycin in the hospital and require 2 more doses to complete treatment. While you are here it seems that your frequency of bowel movements since this had started to decrease as you had greater than 10 BMs the day prior to admission but only had 5 small BMs while admitted in the hospital. You also had adequate urine output with oral hydration indicating to us that you will be able to maintain hydration at home. For this reason, we feel it is safe for you to be discharged. With acute diarrhea, you should consume 64 to 80 fluid ounces of water daily to make up for volume loss through your bowel movements. With diarrhea, there is also electrolyte loss, so I do recommend consuming an binh ctrolyte rich drink such as Pedialyte or Gatorade once a day until resolution of symptoms. I will send 2 more doses of azithromycin (the antibiotic you are on) to complete your antibiotic course. If you develop worsening bloody bowel movements or not able to keep up with hydration, please return to the emergency department for reevaluation. It has been a pleasure to be part of your care and we wish you the best in both your health and recovery Pending Studies at Discharge: No Stand-Alone Forms: My [facility] [employer], Smoking Cessation Medications and DC Order Prescriptions: New azithromycin 500 mg tablet 500 mg PO DAILY 2 Days Qty: 2 0RF Rx Instructions: Take by mouth at night before bed starting 12/02/22 for 2 days Continued omeprazole 40 mg capsule,delayed release(DR/EC) 40 mg PO DAILY losartan 25 mg tablet 25 mg PO QPM ibuprofen 200 mg Tablet 800 mg PO BID PRN (Reason: Pain) lorazepam [Ativan] 1 mg tablet 0.5 mg PO DAILY PRN (Reason: .Anx from flying) Discharge Orders: Discharge Order (Routine); Ordered 12/02/22 Ordered By: Abel Fields Admission Data Admit Date/Time: 12/02/22 00:40 Attending Provider: Luiza Soto Admit Provider: Marta Gilman Primary Care Provider: Oksana Chacko Other Providers: Rosaura Aquino Other Interventions: Discharge Summary Assessment (RN) Last Done: 12/02/22 14:34 Supervising Physician Co-Signing Physician Notes Resident Physician Supervision Note: I independently interviewed and examined the patient and verified the frank history and physical, reviewed labs and image studies and agree with resident findings and care plan.
[2022-12-02] MEDS ORDERED: LOSARTAN POTASSIUM 25 MG TAB PO SCH (21:00)
[2022-12-03] MEDS ORDERED: AZITHROMYCIN 500 MG in DEXTROSE 5% 250 ML IV SCH (02:00)
== END 2022-12-02 14:59 | disposition home or self-care (01) ==
LOC: 3W 20:00 → ED 20:00 → SUATTDRO 12-02 00:40 → 3W 12-02 01:43